=== PATIENT | female | born 1970 | race Caucasian/White ===

== ENCOUNTER 2017-07-17 12:11 | Emergency (ER) | payer MEDICARE, OTHER ==
--- OUTSIDE RECORDS SUMMARY | 2017-07-18 02:11 | XMS REPORT | Continuity of Care Document ---
Author Author [facility] C[facility] of [facility] Address Unknown Phone Unavailable Allergies Medications Problems Date Dx Coded Attending Type Code Diagnosis Diagnosed By 06/13/2010 SERGIO MACKEY DMD V72.31 ROUTINE GYNECOLOGICAL EXAMINATION Procedures Results Encounters ACCT No. Visit Date/Time Discharge Status Pt. Type Provider Facility Loc./Unit Complaint [id number] 12/11/2010 07:48:00 12/11/2010 23: 59:59 CLS Outpatient SERGIO AMCKEY DMD
[2017-07-22 22:37] VITALS: BP 0/0
== END 2017-07-22 22:37 | disposition left against medical advice (07) ==
LOC: ER 12:11 → EDUNIT# 12:11 → ER 07-22 22:37
DX: F41.9 Anxiety disorder, unspecified (principal)
CPT/HCPCS: 99281

== ENCOUNTER 2018-07-07 18:52 | Emergency (ER) | payer MEDICARE ==
[~2018-07-07] VITALS: Ht 165.1 cm; Wt 81.6 kg
--- OUTSIDE RECORDS SUMMARY | 2018-07-07 19:00 | XMS REPORT | Continuity of Care Document ---
Author Author [facility] Ctr of [facility] Ctr of [facility] Address Unknown Phone Unavailable Allergies There is no data. Medications There is no data. Problems Date Dx Coded Attending Type Code Diagnosis Diagnosed By 06/13/2010 SERGIO MACKEY DMD V72.31 ROUTINE GYNECOLOGICAL EXAMINATION Procedures There is no data. Results There is no data. Encounters ACCT No. Visit Date/Time Discharge Status Pt. Type Provider Facility Loc./Unit Complaint [id number] 12/11/2010 07:48:00 12/11/2010 23:59:59 CLS Outpatient SERGIO MACKEY DMD [id number] 07/17/2017 12:11:00 07/22/2017 22:37:00 DIS Emergency SERGIO WELLS MD [facility] ER ANXIETY [id number] 06/14/2018 09:02:53 06/14/2018 23:59:59 CLS Outpatient [id number] 04/05/2018 12:15:00 04/05/2018 23:59:59 CLS Outpatient TAMANNA CANTU [facility]
--- OUTSIDE RECORDS SUMMARY | 2018-07-07 19:00 | XMS REPORT ---
Author Author FLORESITA KIRBY Organization [facility] Address [address] [place] [address] Care Team Providers Care Icu Staff Nurse Name Role Phone FLORESITA KIRBY Unavailable PROBLEMS Unknown Problems ALLERGIES No Information ENCOUNTERS Encounter Location Date Diagnosis [facility] [id number] [place] [phone] Jul, [facility] [id number] [place] [address] March, [facility] WALK IN [facility] [id number] [place] [phone] March, Acute bronchitis, unspecified organism J20.9 [facility] WALK IN [facility] [id number] [place] [phone] March, [facility] [address] [id number] [place] [address] Feb [facility] WALK IN [facility] [id number] [place] [phone] Oct, [facility] [id number] [place] [address] 16604- [address] Jun, Routine gynecological examination V72.31 ; Pap test, as part of routine gynecological examination V76.2 ; Breast cancer screening V76.10 and Amenorrhea 626.0 [facility] [id number] [place] [address] [phone]- 1710 Apr, [facility] [id number] [place] [address] 76268- 3583 Aug, [facility] [id number] [place] [address] [phone]- [phone] Aug, [facility] [id number] [address] Jun, [facility] [id number] [address] March, [facility] [address] [address] Jan, [facility] [address] [address] Nov, [facility] [address] [address] Aug, [facility] [id number] [address] May, IMMUNIZATIONS No Known Immunizations SOCIAL HISTORY Never Assessed REASON FOR VISIT continuity of care PLAN OF CARE VITAL SIGNS MEDICATIONS Unknown Medications RESULTS No Results PROCEDURES No Known procedures INSTRUCTIONS MEDICATIONS ADMINISTERED No Known Medications MEDICAL (GENERAL) HISTORY Type Description Date Medical History obesity Medical History manic depression (on disability) Medical History cervical dysplasia Medical History Anxiety disorder Medical History depression Medical History social anxiety disorder Surgical History tubal ligation Hospitalization History Hospitalization for surgery only
--- OUTSIDE RECORDS SUMMARY | 2018-07-07 19:00 | XMS REPORT ---
Author Author TAMANNA CANTU [facility] Address [address] [place] [address] Care Team Providers Care Temporary Data Entry Clerk Name Role Phone TAMANNA CANTU Unavailable PROBLEMS Unknown Problems ALLERGIES No Information ENCOUNTERS Encounter Location Date Diagnosis [facility] [id number] [place] [address]016- [address]12 Jul, [facility] [id number] [place] [address] 50679- 5030 March, [facility] IN [facility] [id number] [place] [address]39 [phone] March, Acute bronchitis, unspecified organism J20.9 [facility] [id number] [place] [address]160 [address]3255 March, [facility] [address] [id number] [place] [address] Feb [facility] [id number] [place] [phone] [phone] Oct, [facility] [id number] [place] [address] 95543- 2151 Jun, Routine gynecological examination V72.31 ; Pap test, as part of routine gynecological examination V76.2 ; Breast cancer screening V76.10 and Amenorrhea 626.0 [facility] [address] [address] Apr, [facility] [id number] [place] [address] 64900- 3269 Aug, [facility] [id number] [place] [address] 58437- 1090 Aug, [facility] [address] [facility] [id number] [address] Jun, [facility] [id number] [address] March, [facility] [id number] [address] Jan, [facility] [address] [address] Nov, [facility] [id number] [address] Aug, [facility] [id number] [address] May, IMMUNIZATIONS No Known Immunizations SOCIAL HISTORY Never Assessed REASON FOR VISIT Vision appointment PLAN OF CARE VITAL SIGNS MEDICATIONS Unknown [...]
--- OUTSIDE RECORDS SUMMARY | 2018-07-07 19:00 | XMS REPORT ---
Author Author TAMANNA CANTU [facility] Address [address] [place] [address] Care Team Providers Care Teller Coordinator Name Role Phone TAMANNA CANTU Unavailable PROBLEMS Unknown Problems ALLERGIES No Information ENCOUNTERS Encounter Location Date Diagnosis [facility] [place] [id number] [place] [address] 85572- 5741 Apr, [facility] [place] [id number] [place] [address] 40749- [address]01 Apr, [facility] [place] [id number] [place] [address] 57555- 6034 March, [facility] WALK IN [facility] [id number] [place] [address] 96058 [address]8641 March, Acute bronchitis, unspecified organism J20.9 [facility] IN [facility] [id number] [place] [address]51 [address] March, [facility] [address] [id number] [place] [address] Feb [facility] WALK IN [facility] [id number] [place] [address] 99528 -8185 Oct, [facility] [place] [id number] [place] [address] 59415- 1462 Jun, Routine gynecological examination V72.31 ; Pap test, as part of routine gynecological examination V76.2 ; Breast cancer screening V76.10 and Amenorrhea 626.0 [facility] [place] [id number] [place] [address] 35580- 0452 Apr, [facility] [place] [id number] [place] [address] 90962- 1784 Aug, [facility] [place] [address] [facility] [id number] [address] Aug, [facility] [place] [id number] [address] Jun, [facility] [place] [id number] [address] March, [facility] [place] [address] [address] Jan, [facility] [place] [id number] [address] Nov, [facility] [place] [id number] [address] Aug, [facility] [place] [id number] [address] May, IMMUNIZATIONS No Known Immunizations SOCIAL HISTORY Never Assessed REASON FOR VISIT eye appointment PLAN OF CARE VITAL SIGNS MEDICATIONS [...]
[2018-07-07] MEDS ORDERED: LURA80TA3 (19:01)
[2018-07-07] MEDS ORDERED: LAMO200T2 (19:01)
[2018-07-07] MEDS ORDERED: NS IV 1000 ML 1,000 ML IV ONE (19:03)
[2018-07-07 19:13] LABS: BILIRUBIN,URINE NEGATIVE (NEGATIVE); CLARITY,URINE CLEAR; COLOR,URINE YELLOW; GLUCOSE, URINE (UA) NEGATIVE (NEGATIVE); KETONES,URINE NEGATIVE (NEGATIVE); LEUKOCYTE ESTERASE ,URINE NEGATIVE (NEGATIVE); NITRITE,URINE NEGATIVE (NEGATIVE); PH,URINE 6 (5-9); PROTEIN,URINE NEGATIVE (NEGATIVE); UROBILINOGEN,URINE NORMAL (NORMAL)
[2018-07-07] MEDS ORDERED: GABAPENTIN 300 MG (NEURONTIN) CAP PO ONE (19:15)
[2018-07-07 19:19] LABS: SQUAMOUS EPITHELIAL CELL,UR RARE /HPF
[2018-07-07 19:34] LABS: BASOPHILS % (AUTO) 0 % (0-10); EOSINOPHILS # (AUTO) 0.1 10^3/uL (0.0-0.3); EOSINOPHILS % (AUTO) 1 % (0-10); HEMATOCRIT 45 % (35-52); HEMOGLOBIN 14.9 G/DL (11.5-16.0); LYMPHOCYTES # (AUTO) 1.8 X 10^3 (1.0-4.0); LYMPHOCYTES % (AUTO) 20 % (12-44); MEAN CORPUSCULAR HEMOGLOBIN 29 PG (25-34); MEAN CORPUSCULAR HGB CONC 33 G/DL (32-36); MEAN CORPUSCULAR VOLUME 88 FL (80-99); MEAN PLATELET VOLUME 9.9 FL (7.4-10.4); MONOCYTES # (AUTO) 0.6 X 10^3 (0.0-1.0); MONOCYTES % (AUTO) 7 % (0-12); NEUTROPHILS # (AUTO) 6.5 X 10^3 (1.8-7.8); NEUTROPHILS % (AUTO) 73 % (42-75); PLATELET COUNT 307 10^3/uL (130-400); RED BLOOD COUNT 5.09 10^6/uL (4.35-5.85); RED CELL DISTRIBUTION WIDTH 14.9 % (10.0-14.5)
[2018-07-07 19:36] LABS: AMPHETAMINE SCREEN, URINE POSITIVE (NEGATIVE); BARBITURATE SCREEN URINE NEGATIVE (NEGATIVE); BENZODIAZEPINES SCREEN URINE NEGATIVE (NEGATIVE); CANNABINOID SCREEN, URINE NEGATIVE (NEGATIVE); COCAINE SCREEN URINE NEGATIVE (NEGATIVE); METHADONE STAT NEGATIVE (NEGATIVE); METHAMPHETAMINE SCREEN URINE S POSITIVE (NEGATIVE); OPIATE SCREEN URINE NEGATIVE (NEGATIVE); OXYCODONE STAT NEGATIVE (NEGATIVE); PROPOXYPHENE STAT NEGATIVE (NEGATIVE); TRICYCLIC ANTIDEPRESSANTS SCRE NEGATIVE (NEGATIVE)
[2018-07-07 19:51] LABS: ALANINE AMINOTRANSFERASE 20 U/L (0-55); ALBUMIN 4.4 GM/DL (3.2-4.5); ALKALINE PHOSPHATASE 65 U/L (40-136); BILIRUBIN,TOTAL 0.4 MG/DL (0.1-1.0); BUN/CREATININE RATIO 11; CALCIUM 9.7 MG/DL (8.5-10.1); CARBON DIOXIDE 23 MMOL/L (21-32); CHLORIDE 106 MMOL/L (98-107); CREATINE KINASE 87 U/L (29-168); CREATININE SERUM 0.85 MG/DL (0.60-1.30); GFR ESTIMATED > 60; GLUCOSE 120 MG/DL (70-105); SODIUM 141 MMOL/L (135-145); TOTAL PROTEIN 7.2 GM/DL (6.4-8.2)
[2018-07-07] MEDS ORDERED: GABA-488 PO ×2 (20:23→20:28)
--- NOTE | 2018-07-07 20:23 | ED Psychosocial ---
General Chief Complaint: Psych/Social Disorder Stated Complaint: ANXIETY Nursing Triage Note: brought in by [facility] for increased anxiety, shaking, feeling tense after stopping neurontin. Source: patient Exam Limitations: no limitations History of Present Illness Date Seen by Provider: Jul 07, 2018 Time Seen by Provider: 18:53 Initial Comments This 48-year-old woman is brought to the emergency room via EMS for reasons of tremor, anxiousness, and diaphoresis which she believes to be from gabapentin withdrawal. She reports her behavioral health provider, Monique Dorman, has been trying to wean her off of gabapentin. She lost her gabapentin last Wednesday and reports having similar symptoms after a prolonged period of time without it. Symptoms resolved about 45 minutes after she resumed taking gabapentin. She reports her last dose of gabapentin was at 23:00 last night. She had been taking up to two 600 milligrams capsules 3 times daily. Yesterday she took 2 capsules in the morning and one in the evening. She denies chest pain or shortness of breath. She is diaphoretic. Patient initially denied any drug or alcohol use but later admitted to using "a line of meth" one week ago. Patient has significant tremoring of her extremities and reports her muscles are tense. Allergies and Home Medications Allergies Coded Allergies: No Known Drug Allergies (Unverified , 07/07/18) Home Medications Gabapentin 300 Mg Capsule, 300 MG PO Q6H Prescribed by: SANDRO GILES on 07/07/182027 Patient Home Medication List Home Medication List Reviewed: Yes Constitutional: see HPI EENTM: no symptoms reported Respiratory: no symptoms reported Cardiovascular: other (tachycardic) Gastrointestinal: no symptoms reported Genitourinary: no symptoms reported : No Musculoskeletal: see HPI Skin: no symptoms reported Psychiatric/Neurological: See HPI Past Srqkwzd-Hjnfrh-Xtumnz Hx Past Med/Social Hx: Reviewed and Corrections made Patient Social History Alcohol Use: Denies Use Recreational Drug Use: Yes Drug of Choice: methamphetamine Smoking Status: Never a Smoker 2nd Hand Smoke Exposure: No Recent Foreign Travel: No Contact w/Someone Who Travel: No Recent Infectious Disease Expo: No Recent Hopitalizations: No Immunizations Up To Date Tetanus Booster (TDap): Unknown Seasonal Allergies Seasonal Allergies: No Past Medical History Surgeries: No Respiratory: Yes Asthma Cardiac: No Neurological: No : No Genitourinary: No Gastrointestinal: No Musculoskeletal: No Endocrine: No HEENT: No Cancer: No Psychosocial: Yes Anxiety, Bipolar, Depression Integumentary: No Blood Disorders: No Physical Exam Vital Signs - First Documented 07/07/18 18:55 Temp 96.2 Pulse 106 Resp 22 B/P (MAP) 143/107 (119) Pulse Ox 95 O2 Delivery Room Air Capillary Refill : Less Than 3 Seconds Height, Weight, BMI Height: 5'5.00" Weight: 180lbs. oz. 81.904079ho; BMI Method:Estimated General Appearance: WD/WN, mild distress, other (anxious) HEENT: PERRL/EOMI, normal ENT inspection, pharynx normal Neck: normal inspection Respiratory: lungs clear, normal breath sounds, no respiratory distress, no accessory muscle use Cardiovascular: no edema, no murmur, tachycardia Gastrointestinal: normal bowel sounds, non tender, soft Extremities: normal inspection, no pedal edema Neurologic/Psychiatric: group manager II-XII nml as tested, no motor/sensory deficits, alert, normal mood/affect, oriented x 3, other (tremoring throughout the extremities, left greater than right) Behavior/Eye Contact: cooperative, good eye contact Skin: normal color, diaphoresis Progress/Results/Core Measures Results/Orders Lab Results Laboratory Tests Test 07/07/18 19:03 07/07/18 19:10 Range/Units Urine Color YELLOW Urine Clarity CLEAR Urine pH 6 5-9 Urine Specific [place] 1.010 L 1.016-1.022 Urine Protein NEGATIVE NEGATIVE Urine Glucose (UA) NEGATIVE NEGATIVE Urine Ketones NEGATIVE NEGATIVE Urine Nitrite NEGATIVE NEGATIVE Urine Bilirubin NEGATIVE NEGATIVE Urine Urobilinogen NORMAL NORMAL MG/DL Urine Leukocyte Esterase NEGATIVE NEGATIVE Urine RBC (Auto) NEGATIVE NEGATIVE Urine RBC NONE /HPF Urine WBC NONE /HPF Urine Squamous Epithelial Cells RARE /HPF Urine Crystals NONE /LPF Urine Bacteria NONE /HPF Urine Casts NONE /LPF Urine Mucus NEGATIVE /LPF Urine Culture Indicated NO Urine Opiates Screen NEGATIVE NEGATIVE Urine Oxycodone Screen NEGATIVE NEGATIVE Urine Methadone Screen NEGATIVE NEGATIVE Urine Propoxyphene Screen NEGATIVE NEGATIVE Urine Barbiturates Screen NEGATIVE NEGATIVE Ur Tricyclic Antidepressants Screen NEGATIVE NEGATIVE Urine Phencyclidine Screen NEGATIVE NEGATIVE Urine Amphetamines Screen POSITIVE H NEGATIVE Urine Methamphetamines Screen POSITIVE H NEGATIVE Urine Benzodiazepines Screen NEGATIVE NEGATIVE Urine Cocaine Screen NEGATIVE NEGATIVE Urine Cannabinoids Screen NEGATIVE NEGATIVE White Blood Count 9.0 4.3-11.0 10^3/uL Red Blood Count 5.09 4.35-5.85 10^6/uL Hemoglobin 14.9 11.5-16.0 G/DL Hematocrit 45 35-52 % Mean Corpuscular Volume 88 80-99 FL Mean Corpuscular Hemoglobin 29 25-34 PG Mean Corpuscular Hemoglobin Concent 33 32-36 G/DL Red Cell Distribution Width 14.9 H 10.0-14.5 % Platelet Count 307 130-400 10^3/uL Mean Platelet Volume 9.9 7.4-10.4 FL Neutrophils (%) (Auto) 73 42-75 % Lymphocytes (%) (Auto) 20 12-44 % Monocytes (%) (Auto) 7 0-12 % Eosinophils (%) (Auto) 1 0-10 % Basophils (%) (Auto) 0 0-10 % Neutrophils # (Auto) 6.5 1.8-7.8 X 10^3 Lymphocytes # (Auto) 1.8 1.0-4.0 X 10^3 Monocytes # (Auto) 0.6 0.0-1.0 X 10^3 Eosinophils # (Auto) 0.1 0.0-0.3 10^3/uL Basophils # (Auto) 0.0 0.0-0.1 10^3/uL Sodium Level 141 135-145 MMOL/L Potassium Level 4.0 3.6-5.0 MMOL/L Chloride Level 106 98-107 MMOL/L Carbon Dioxide Level 23 21-32 MMOL/L Anion Gap 12 5-14 MMOL/L Blood Urea Nitrogen 9 7-18 MG/DL Creatinine 0.85 0.60-1.30 MG/DL Estimat Glomerular Filtration Rate > 60 BUN/Creatinine Ratio 11 Glucose Level 120 H 70-105 MG/DL Calcium Level 9.7 8.5-10.1 MG/DL Corrected Calcium 9.4 8.5-10.1 MG/DL Total Bilirubin 0.4 0.1-1.0 MG/DL Aspartate Amino Transf (AST/SGOT) 15 5-34 U/L Alanine Aminotransferase (ALT/SGPT) 20 0-55 U/L Alkaline Phosphatase 65 40-136 U/L Total Creatine Kinase 87 29-168 U/L Total Protein 7.2 6.4-8.2 GM/DL Albumin 4.4 3.2-4.5 GM/DL Serum Alcohol < 10 <10 MG/DL My Orders Orders - SANDRO ORDONEZ MD Cbc With Automated Diff (07/07/18 19:03) Comprehensive Metabolic Panel (07/07/18 19:03) Creatine Kinase (07/07/18 19:03) Ua Culture If Indicated (07/07/18 19:03) Saline Lock/Iv-Start (07/07/18 19:03) Ns Iv 1000 Ml (Sodium Chloride 0.9%) (07/07/18 19:03) Drug Screen Stat (Urine) (07/07/18 19:03) Alcohol (07/07/18 19:05) Gabapentin Capsule/Tablet (Neurontin Cap (07/07/18 19:15) Medications Given in ED Current Medications Medications Dose Ordered Sig/Christ Route Start Time Stop Time Status Last Admin Dose Admin Gabapentin 600 mg ONCE ONCE PO 07/07/18 19:15 07/07/18 19:16 DC 07/07/18 19:19 600 MG Sodium Chloride 1,000 ml @ 0 mls/hr Q0M ONCE IV 07/07/18 19:03 07/07/18 19:04 DC 07/07/18 19:19 0 MLS/HR Vital Signs/I&O 07/07/18 07/07/18 18:55 20:28 Temp 96.2 97.0 Pulse 106 98 Resp 22 22 B/P (MAP) 143/107 (119) 142/92 (119) Pulse Ox 95 97 O2 Delivery Room Air Room Air 07/08/18 00:00 Intake Total 1000 ml Balance 1000 ml Blood Pressure Mean: 119 Progress Progress Note : Progress Note Patient was given a liter of IV fluid and gabapentin 600 mg. She was beginning to improve after about 30 minutes. Plan is to continue her on gabapentin 300 mg every 6 hours to prevent withdrawal. She can then follow up with her behavioral health provider for further instructions. Departure Impression Primary Impression: Medication withdrawal Qualified Codes: F19.939 - Other psychoactive substance use, unspecified with withdrawal, unspecified Additional Impressions: Tremor Diaphoresis Methamphetamine abuse Disposition: 01 HOME, SELF-CARE Condition: Improved Departure-Patient Inst. Decision time for Depature: 20:20 Referrals: NO,LOCAL PHYSICIAN (PCP/Family) Primary Care Physician Patient Instructions: Methamphetamine, Prescription Drug Withdrawal (DC) Add. Discharge Instructions: group burner machine your gabapentin prescription as soon as possible. You may take an additional capsule tonight when you get home if needed. Then take 1 capsule 4 times daily (every 6 hours) until follow-up with your provider. Please follow- up with your provider soon as possible. Return to emergency room if symptoms worsen. Avoid use of any other psychoactive substances such as marijuana, alcohol or methamphetamines. All discharge instructions reviewed with patient and/or family. Voiced understanding. Scripts Gabapentin (Gabapentin) 300 Mg Capsule 300 MG PO Q6H, #20 CAP Prov: SANDRO ORDONEZ MD 07/07/18 SANDRO ORDONEZ MD Jul 07, 2018 20:23
[2018-07-07 20:28] VITALS: BP 142/92
== END 2018-07-07 20:25 | disposition home or self-care (01) ==
LOC: EDUNIT# 18:52 → ER 18:53
DX: F19.939 Other psychoactive substance use, unspecified with withdrawal, unspecified (principal); F15.10 Other stimulant abuse, uncomplicated; G25.1 Drug-induced tremor; R61 Generalized hyperhidrosis; F41.9 Anxiety disorder, unspecified; J45.909 Unspecified asthma, uncomplicated; F31.9 Bipolar disorder, unspecified
CPT/HCPCS: 36415; 80053; 80306; 80320; 81000; 82550; 85025; 96360